=== PATIENT | female | born 1960 | race Caucasian/White ===

== ENCOUNTER → 2019-06-14 16:43 | Outpatient (CLI) | payer BC, SELFPAY ==
--- NOTE | ~2019-06-14 | XR_ITS ---
XR knee LT 3V 06/14/2019 17:12 INDICATION: Left knee pain PROCEDURE: 3 views left knee COMPARISON: No prior studies for comparison. FINDINGS: Fracture, dislocation or subluxation is not identified. No joint effusion. The soft tissues appear within normal limits. No foreign bodies are identified. IMPRESSION: 1: NO ACUTE BONE OR JOINT ABNORMALITY IDENTIFIED. Reviewed, dictated and finalized at location A. RER
--- NOTE | ~2019-06-14 | XR_ITS ---
XR hip LT 2V w AP pelvis 06/14/2019 17:12 Indication: Left hip pain Procedure: 3 views left hip Comparison: No prior studies for comparison. Findings: There is mild osteoarthritis of the left hip. No fracture, subluxation or dislocation. Pelv ic rings are intact. Sacral foramen are symmetric. No significant soft tissue abnormality. Impression: 1: Mild osteoarthritis of the left hip. Reviewed, dictated and finalized at location A. [employer] SEC[employer] OFFICER Impression: 1: Mild osteoarthritis of the left hip.
== END ==
PROVIDERS: PCP Family Medicine; Visit Provider Physician Assistant
DX: S89.92XA Unspecified injury of left lower leg, initial encounter (principal); M16.12 Unilateral primary osteoarthritis, left hip
CPT/HCPCS: 73502; 73521; 73562

== ENCOUNTER → 2019-12-03 12:08 | Outpatient (CLI) | payer BC, SELFPAY ==
--- NOTE | ~2019-12-03 | XR_ITS ---
XR lumbar spine 2-3V DATE: 12/03/2019 12:30 INDICATION: Back pain. Myalgia. TECHNIQUE: AP, lateral, coned lateral lumbosacral views COMPARISON: 02/23/2017 lumbar spine FINDINGS: Diffuse osteopenia. There is normal alignment of lumbar spine. No fracture or bone destruction or spondylolisthesis is ev ident. The included lower thoracic and lumbar pedicles are intact. There is mild degenerative disc disease at L1-2, L3-4, moderate degenerative disease at L2-3 and mode rately severe degenerative disc disease at L5-S1. The sacroiliac joints are intact. IMPRESSION: Multilevel degenerative disc disease Osteopenia Reviewed, dictated and finalized at location A.
--- NOTE | ~2019-12-03 | XR_ITS ---
EXAMINATION: XR sacrum coccyx min 2V EXAM DATE: 12/03/2019 12:30 INDICATION: Left posterior buttock pain after falling in June. TECHNIQUE: Frontal projection sacrum and coccyx, inlet projection sacrum and coccyx, lateral project ions sacrum and coccyx. There is no prior study for comparison. FINDINGS: Sacrum, sacroiliac joints, sacral arcuate lines are intact. There are no acute fractures o r dislocations identified. There is no subcutaneous gas. The soft tissue is unremarkable. There a re no radiopaque foreign bodies. Moderate L5-S1 disc disease. IMPRESSION: 1. Unremarkable sacrococcygeal exam. Reviewed, dictated and finalized at location A.
== END ==
PROVIDERS: PCP Family Medicine; Visit Provider Physician Assistant
DX: M79.18 Myalgia, other site (principal); M51.36 Other intervertebral disc degeneration, lumbar region; M85.88 Other specified disorders of bone density and structure, other site
CPT/HCPCS: 72100; 72220

== ENCOUNTER → 2020-04-28 09:43 | Outpatient (CLI) | payer BC, SELFPAY ==
--- NOTE | ~2020-04-28 | XR_ITS ---
XR chest 2V DATE: 04/28/2020 10:05 INDICATION: Cough TECHNIQUE: 2 views COMPARISON: 07/31/2017 two-view chest FINDINGS: Normal heart size. No hilar or mediastinal enlargement. No pulmonary infiltrate or consolid ation, pleural effusion or pulmonary vascular congestion or pneumothorax. IMPRESSION: No active cardiopulmonary disease or significant change since 08/10/2017 Reviewed, dictated and finalized at location B. OFFICER IMPRESSION: No active cardiopulmonary disease or significant change since 2017
== END ==
PROVIDERS: PCP Family Medicine; Visit Provider Family Medicine
DX: R05 Cough (principal)
CPT/HCPCS: 71046

== ENCOUNTER → 2021-02-02 10:31 | Outpatient (CLI) | payer BC, SELFPAY ==
--- NOTE | ~2021-02-02 | MM_ITS ---
EXAMINATION: MM screening lauren BI w yulisa HISTORY: Screening TECHNIQUE: Craniocaudal and mediolateral oblique 3-D tomosynthesis images were obtained and synthetic 2-D images were generated. CAD analysis was submitted and interpreted. COMPARISON: 01/24/2019 BREAST PARENCHYMAL COMPOSITION: The breasts are heterogenously dense, which may obscure small masses FINDINGS: There is no evidence of suspicious mass, calcification, or architectural distortion to sugg est malignancy in either breast. There has been no suspicious interval change. IMPRESSION: 1. No mammographic evidence of malignancy. 2. Recommend routine screening mammography in one year. BI-RADS Category 1: Negative Reviewed, dictated and finalized at location A.
== END ==
PROVIDERS: PCP Family Medicine; Visit Provider Physician Assistant
DX: Z12.31 Encounter for screening mammogram for malignant neoplasm of breast (principal)
CPT/HCPCS: 77063; 77067

== ENCOUNTER → 2022-05-05 15:56 | Outpatient (CLI) | payer BC, SELFPAY ==
--- NOTE | ~2022-05-05 | MM_ITS ---
EXAMINATION: MM screening lauren BI w yulisa HISTORY: Screening TECHNIQUE: Craniocaudal and mediolateral oblique 3-D tomosynthesis images were obtained and synthetic 2-D images were generated. CAD analysis was submitted and interpreted. COMPARISON: Comparison to multiple prior studies sequentially, with oldest reviewed study dated 04/2017. BREAST PARENCHYMAL COMPOSITION: The breasts are heterogeneously dense, which may obscure small masses . FINDINGS: There is no evidence of suspicious mass, calcification, or architectural distortion to sugg est malignancy in either breast. There has been no suspicious interval change. IMPRESSION: 1. No mammographic evidence of malignancy. 2. Recommend routine screening mammography in one year. BI-RADS Category 1: Negative Reviewed, dictated and finalized at location A. MANAGER
== END ==
PROVIDERS: PCP Family Medicine; Visit Provider Family Medicine
DX: Z12.31 Encounter for screening mammogram for malignant neoplasm of breast (principal)
CPT/HCPCS: 77063; 77067

== ENCOUNTER 2022-12-27 12:31 | Emergency (ER) | payer BC, SELFPAY ==
[2022-12-27 12:46] VITALS: BP 140/74; PULSE 84; RESP 16; TEMP 36.8; O2SAT 98
--- NOTE | 2022-12-27 12:52 | ED.URI ---
HPI - URI/Sore Throat General Chief Complaint: Upper Respiratory Infection Stated Complaint: Cold symptoms Source: patient and RN notes reviewed History of Present Illness HPI Narrative: 62 yo F presents to urgent care with complaints of congestion, runny nose, sore throat, HARRIS, and body aches. Pt states her symptoms have been going on since Monday night. Pt has taken 2 negative covid tests at home. Denies any fevers, vomiting ,diarrhea, chest pain, or SOB. Pt has been taking Zyrtec at home. Related Data Allergies Allergy/AdvReac Type Severity Reaction Status Date / Time penicillin G Allergy Unknown unknown Verified 12/27/22 12:42 Penicillins Allergy Unknown unknown Verified 12/27/22 12:42 bupropion [From Wellbutrin] AdvReac Intermediate Agitated Verified 12/27/22 12:42 Review of Systems Review of Systems: Pertinent positives and pertinent negatives per HPI. [facility] Past Medical History Medical History Anxiety Asthma Depression Diabetes HLD (hyperlipidemia) Hypertension Prolactinoma Surgical History Surgical History H/O lumpectomy H/O: hysterectomy History of appendectomy Family History Family History Father Family history of chronic obstructive pulmonary disease, Onset Age: 76 Grandparent Family history of malignant melanoma, Onset Age: 80 Family history of malignant neoplasm of cervix, Onset Age: 44 Other Diabetes mellitus Family history of arthritis Family history of coronary artery disease Family history of liver disease Hypertension Social History Social History Smoking status: Former smoker Second hand tobacco smoke exposure: No Smoking end date: 04/24/80 Alcohol intake: current Drinks per week: 4 Substance use: never Substance use type: does not use Lack of Transportation: No Lack of Food: Never True Current Housing: I Have Housing Concerned About Future Housing: No Difficulty Paying Gas/Electric Bills: No Difficulty Paying for Meds: No Currently Unemployed: No Education: High School Diploma/GED Difficulty w/ Childcare or Family Care: No Living arrangements: with family Gender identity (if verbalized by the patient): Female Comments At the time of my signature, I reviewed and agree with the nursing past medical, surgical, social, and family history. There is no relevant family history pertinent to the patient complaint. Exam Narrative: GENERAL: This is a well-nourished, well-developed patient, in no apparent distress. HEAD: normocephalic, atraumatic. EYES: Sclera clear/white. Vision is grossly intact. EARS: External ears normal, auditory canals clear and without drainage, TMs normal without perforation. Hearing grossly intact. NOSE: Congestion and rhinorrhea. THROAT: Mucous membranes moist, posterior pharynx clear. NECK: Neck supple, non-tender without lymphadenopathy, masses or thyromegaly. CARDIOVASCULAR: Regular rate and rhythm without murmurs, gallops, or rubs. RESPIRATORY: Clear to auscultation. Breath sounds equal bilaterally. No wheezes, rales, or rhonchi. GASTROINTESTINAL: Abdomen soft, non-tender, nondistended. Bowel sounds are active. No hepato-splenomegaly, or palpable masses. No guarding. SKIN: warm, intact with no suspicious lesions or rash, good texture and turgor. NEURO: awake, alert, and oriented to person, place and time. There were no obvious focal neurologic abnormalities. Course Course Level of Care: Express Care Visit Vital Signs Vital signs: Vital Signs Temperature 98.3 F 12/27/22 12:46 Pulse Rate 84 12/27/22 12:46 Respiratory Rate 16 12/27/22 12:46 Blood Pressure 140/74 12/27/22 12:46 Pulse Oximetry 98 12/27/22 12:46 Temperature 98.3 F 12/27/22 12:46 P
== END 2022-12-27 13:13 | disposition home or self-care (01) ==
PROVIDERS: Emergency Provider Nurse Practitioner Family; PCP Family Medicine
DX: B34.9 Viral infection, unspecified (principal); Z87.891 Personal history of nicotine dependence; J45.909 Unspecified asthma, uncomplicated; E11.9 Type 2 diabetes mellitus without complications; E78.5 Hyperlipidemia, unspecified; I10 Essential (primary) hypertension
CPT/HCPCS: 87081; 87880; 99213; G0463

== ENCOUNTER → 2023-05-19 14:04 | Outpatient (CLI) | payer BC, SELFPAY ==
--- NOTE | ~2023-05-19 | XR_ITS ---
EXAMINATION: XR chest 2V 05/19/2023 14:19 INDICATION: Cough PROCEDURE: 2 view chest COMPARISON: No prior studies for comparison. FINDINGS: The lungs are clear. The cardiomediastinal silhouette is within normal limits. There are no pleural effusions. There is no pneumothorax suspected. IMPRESSION: 1: NO ACUTE CARDIOPULMONARY DISEASE. Reviewed, dictated and finalized at location B. WORK MANAGER
== END ==
PROVIDERS: PCP Family Medicine; Visit Provider Family Medicine
DX: R05.9 Cough, unspecified (principal); R07.81 Pleurodynia
CPT/HCPCS: 71046